=== PATIENT | female | born 2000 | race Two or more races ===

== ENCOUNTER 2022-12-31 11:52 | Outpatient (REF) | payer MEDICAID, OTHER, SELFPAY ==
[2023-01-01 14:15] LABS: HIV AB/AG Nonreactive (Nonreactive); HIV Num 1 0.08 S/CO (0.00-0.99); ~HepC Num1 0.12 S/CO (0.00-0.79); ~Hepatitis C Antibody Nonreactive (Nonreactive)
== END 2022-12-31 11:53 | disposition home or self-care (01) ==
LOC: HO.CHCLDS 11:52
PROVIDERS: Visit Provider Family Medicine
DX: Z11.4 Encounter for screening for human immunodeficiency virus [HIV] (principal); Z13.9 Encounter for screening, unspecified
CPT/HCPCS: 36415; 86803; 87389

== ENCOUNTER 2023-01-04 12:39 | Outpatient (REF) | payer MEDICAID, OTHER, SELFPAY | END 2023-01-04 12:40 | disposition home or self-care (01) | LOC: HO.CHCLNP 12:39 | PROVIDERS: Visit Provider Family Medicine | DX: R19.6 Halitosis (principal) | CPT/HCPCS: 87338 ==